=== PATIENT | male | born 1965 | race Native Hawaiian/Other Pacific Islander ===

== ENCOUNTER 2022-07-31 23:24 | Emergency (ER) | payer SELFPAY ==
[2022-07-31 23:48] VITALS: BP 152/88; PULSE 82; RESP 16; TEMP 36.7; O2SAT 95
--- NOTE | 2022-08-01 03:42 | ED_ITS ---
HPI - Eye Problem General Chief complaint: Eye Problems Stated complaint: Left Eye Injury Time Seen by Provider: 08/01/22 00:08 History of Present Illness HPI Narrative: 56-year-old man presenting to the emergency department accompanied by significant other. Was working cutting some plywood and a small bit of wood, shaving of some sort got into the left eye. This was about 8 hours prior to arrival here. Has taken what sounds like 600 mg and this has helped a little bit but still quite uncomfortable. Affecting vision. Had tried rubbing it and made it worse. Has drainage. Not purulent. Related Data Allergies Allergy/AdvReac Type Severity Reaction Status Date / Time No Known Drug Allergies Allergy Verified 08/01/22 00:05 Review of Systems Status of ROS: Reports: 6 or more systems reviewed and unremarkable except as noted in History and below [facility] Medical History Meniere's disease Obesity Prediabetes Sensorineural hearing loss, unilateral Subjective tinnitus Social History Smoking Status: Never smoker Do you use any of these nicotine containing products: None Second hand tobacco smoke exposure: No How often do you have a drink containing alcohol: never How often do you have six or more drinks on one occasion: Never AUDIT-C Alcohol total score: 0 Non-prescribed substance use: denies use Exam Narrative: Exam Narrative: Calm. Pleasant. Extraocular movements are full. No erythema or induration of the periorbital area. Pupils are equal and reactive. Mild lacrimation of the left eye. Small rhinorrhea. Generally injected sclera. Tetracaine drops. With fluorescein dye can appreciate a broad abrasion over the upper cornea from at o'clock to 12:00 p.m.. There is some uptake also smaller in the inferior medial sclera. There is a small linear uptake mid upper lid. Able to remove a very small bit of what I think is a wood shaving/splinter from the conjunctiva of the inner mid upper eyelid. Const: Vital Signs, click to edit/add: Vital Signs - 24 hr 07/31/22 23:48 Temperature 98.0 F Pulse Rate [Right Pulse Oximeter] 82 Respiratory Rate 16 Blood Pressure [Le ft Upper Arm] 152/88 H Pulse Oximetry 95 Oxygen Delivery Me thod Room Air Documenting provider has reviewed patient's vital signs: yes Course Vital Signs Vital signs: Initial Vital Signs Temperature 98.0 F 07/31/22 23:48 Temperature Source Temporal Artery Scan 07/31/22 23:48 Pulse Rate 82 07/31/22 23:48 Pulse Rhythm 07/31/22 23:48 Respiratory Rate 16 07/31/22 23:48 Blood Pressure 152/88 H 07/31/22 23:48 Blood Pressure Mean 109 07/31/22 23:48 Blood Pressure Position Sitting 07/31/22 23:48 Pulse Oximetry 95 07/31/22 23:48 Oxygen Delivery Method 07/31/22 23:48 Vital Signs Temperature 98.0 F 07/31/22 23:48 Pulse Rate 82 07/31/22 23:48 Respiratory Rate 16 07/31/22 23:48 Blood Pressure 152/88 H 07/31/22 23:48 Pulse Oximetry 95 07/31/22 23:48 Oxygen Delivery Method 07/31/22 23:48 Temperature 98.0 F 07/31/22 23:48 Pulse Rate 82 07/31/22 23:48 Respiratory Rate 16 07/31/22 23:48 Blood Pressure 152/88 H 07/31/22 23:48 Pulse Oximetry 95 07/31/22 23:48 Oxygen Delivery Method 07/31/22 23:48 MDM - Eye Problem MDM Narrative Medical decision making narrative: Evidence of wood particle in the conjunctiva of the mid upper lid likely corresponding with broader area of abrasion on the upper cornea. Placed small ribbon of erythromycin eye ointment and given same tube from stock. Medical Records Attestation: I reviewed the patient's medical records. Discharge Plan Discharge Clinical Impression: Abrasion of sclera, Foreign body in eye, Corneal abrasion Patient Disposition: Home w/ Parent or Adult Condition: Improved Instructions: Corneal Abrasion (ED) Additional Instructions: Can take ibuprofen for pain. Alternative to the ibuprofen can be up to 500 mg of naproxen 2 times daily. Can take up to 1000 mg of acetaminophen per dose. Either ibuprofen or naproxen can be combined with acetaminophen or your prescribed pain medication [place]. Remember that each tablet of [place] has 325 mg of acetaminophen in it. Be seen for uncontrolled pain, copious purulent drainage, increasing redness and swelling around your eye. Puede dev ibuprofeno para el dolor. La alternativa al ibuprofeno puede ser de hasta 500 mg de naproxeno 2 veces al d?a. Puede dev hasta 1000 mg de paracetamol por dosis. El ibuprofeno o el naproxeno se pueden combinar con acetaminof?n o villalobos analg?sico recetado [place]. Recuerde que cada tableta de [place] contiene 325 mg de acetaminof?n. Ser visto para el dolor incontrolable, drenaje purulento copioso, aumento de enrojecimiento e hinchaz?n alrededor de villalobos nohemy. Stand Alone Forms: [facility] Info Instructions
== END 2022-08-01 01:36 | disposition home or self-care (01) ==
LOC: ED 08-01 01:35
PROVIDERS: Emergency Provider Family Medicine
DX: T15.02XA Foreign body in cornea, left eye, initial encounter (principal)
CPT/HCPCS: 99283; 99284; A9270